=== PATIENT | male | born 1965 | race Caucasian/White ===

== ENCOUNTER 2024-03-19 11:39 | Outpatient (CLI) | payer BC | END 2024-03-19 11:40 | disposition home or self-care (01) | LOC: CSHCT 11:39 | PROVIDERS: ATTEND Internal Medicine Hematology & Oncology | DX: R10.9 Unspecified abdominal pain (principal); D45 Polycythemia vera; R16.1 Splenomegaly, not elsewhere classified; K76.0 Fatty (change of) liver, not elsewhere classified | CPT/HCPCS: 74177 ==